=== PATIENT | female | born 1970 | race African-American/Black ===

== ENCOUNTER 2019-12-29 18:05 | Emergency (ER) | payer SELFPAY ==
--- NOTE | 2019-12-29 18:10 | ED.GENADULT ---
HPI - General Adult General Chief complaint: Skin/Abscess/Foreign Body Stated complaint: Spider Bite On Buttock Time Seen by Provider: 12/29/19 18:33 Source: patient Mode of arrival: ambulatory Limitations: no limitations History of Present Illness HPI narrative: 49-year-old female patient resents to the [facility] with complaints of a rash to the left buttock for the past 3 days. Patient states it is painful and is noticed pain to the area for the past 4 days but just noticed the rash there about 3 days ago. Patient states it does slightly itch but mostly it is very painful. Patient states she is tried Benadryl cream to help with the itching which did slightly help. Related Data Allergies Allergy/AdvReac Type Severity Reaction Status Date / Time No Known Allergies Allergy Unverified 05/20/19 21:47 Review of Systems Review of Systems: Narrative: CONSTITUTIONAL: Denies fever, chills, or sweats. EYES: Denies visual changes, redness, or discharge. ENT: Denies rhinorrhea, congestion, sore throat, or otalgia. CARDIOVASCULAR: Denies chest pain, palpitations, or edema. RESPIRATORY: Denies cough or dyspnea. GASTROINTESTINAL: Denies abdominal pain, nausea, vomiting, or diarrhea. GENITOURINARY: Denies dysuria or hematuria. SKIN: Positive painful rash with slight itching noted to the left buttocks x3 days with the pain there for the past 4 days. MUSCULOSKELETAL: Denies back pain, joint pain, or myalgia. NEUROLOGIC: Denies headache, numbness, or weakness. PSYCHIATRIC: Denies anxiety or depression. [facility] Family History Family History Other Family history of malignant neoplasm Social History Social History Smoking status: Former smoker Smoking end date: 09/05/92 Alcohol intake: current Comments At the time of my signature I agree with nursing past medical history, surgical, social, and family history. There is no relevant family history pertinent to the presenting complaint. Exam Narrative: Exam Narrative: GENERAL: Well-appearing, well-nourished, and in no acute distress. HEAD: Normocephalic, atraumatic. EYES: PERRLA and EOMI. ENT: Nares clear, no rhinorrhea or epistaxis. Mucous membranes moist. Patient does noted to have a small fever blister noted to the right side of the upper lip. NECK: Supple. No lymphadenopathy CHEST: Clear to auscultation. No respiratory distress. HEART: Regular rate and rhythm. No murmur heard. Normal peripheral pulses. ABDOMEN: Soft, nontender, nondistended, normal active bowel sounds. EXTREMITIES: Normal range of motion. No edema. SKIN: Warm, dry, patient has a cluster he blisterlike rash noted to the middle of the left buttock. It is very painful to the touch. There is no open wounds or drainage noted. NEURO: No focal deficits. Alert and oriented x3. Course Vital Signs Vital signs: Vital Signs Temperature 37.1 C 12/29/19 18: Pulse Rate 61 12/29/19 18: Respiratory Rate 16 12/29/19 18:29 Blood Pressure 130/78 12/29/19 18:29 Pulse Oximetry 98 12/29/19 18:29 Temperature 37.1 C 12/29/19 18:29 Pulse Rate 61 12/29/19 18:29 Respiratory Rate 16 12/29/19 18:29 Blood Pressure 130/78 12/29/19 18:29 Pulse Oximetry 98 12/29/19 18:29 Vital signs reviewed. The patient has been informed that they may have pre-hypertension or Hypertension based on a BP reading in the department. I recommend that the patient call the primary care provider listed on their discharge instructions or a physician of their choice this week to arrange follow up for further evaluation of possible pre-hypertension or Hypertension Medical Decision Making Differential Diagnosis Differential Diagnosis: Differential diagnosis: Abscess, cellulitis, hidradenitis, laceration, puncture wound. Contact dermatitis, poison chey, poison sumac, psoriasis, eczema, allergic reaction, drug reaction, sc
[2019-12-29 18:29] VITALS: BP 130/78; PULSE 61; RESP 16; TEMP 37.1; O2SAT 98
== END 2019-12-29 18:55 | disposition home or self-care (01) ==
PROVIDERS: Emergency Provider Nurse Practitioner Family
DX: B02.9 Zoster without complications (principal)
CPT/HCPCS: 99213; G0463

== ENCOUNTER 2021-03-19 16:02 | Emergency (ER) | payer OTHER, SELFPAY ==
[2021-03-19 16:15] VITALS: BP 124/51; PULSE 57; RESP 16; TEMP 36.3; O2SAT 99
--- NOTE | 2021-03-19 16:36 | ED.EAR ---
HPI - Ear Problem General Chief complaint: Ear Stated complaint: Ear Pain Time Seen by Provider: 03/19/21 16:36 Source: patient Mode of arrival: ambulatory Limitations: no limitations History of Present Illness HPI Narrative: Myles López is a 50-year-old female with bilateral ear pain that started for 5 to 7 days ago that she has tried to use Debrox and regular peroxide to improve the pain. She states her ears her rates the pain at 6 out of 10, the left worse than the right. She also has sore throat Related Data Allergies Allergy/AdvReac Type Severity Reaction Status Date / Time No Known Allergies Allergy Unverified 03/19/21 16:23 Review of Systems Review of Systems: Narrative: CONSTITUTIONAL: Denies fever, chills, sweats. EYES: Denies visual changes, redness, discharge. ENT: Denies rhinorrhea, mild congestion, has sore throat, bilateral otalgia. CARDIOVASCULAR: Denies chest pain, palpitations, edema. RESPIRATORY: Denies dyspnea, wheezing, cough GASTROINTESTINAL: Denies abdominal pain, nausea, vomiting, diarrhea. GENITOURINARY: Denies dysuria, hematuria, abnormal discharge SKIN: Denies rash or itching. NEUROLOGIC: Denies numbness, or focal weakness. PSYCHIATRIC: Denies anxiety or depression. PMFSH Past Medical History Medical History No acute medical problems Family History Family History Other Family history of malignant neoplasm Social History Social History Smoking status: Former smoker Smoking end date: 09/05/92 Alcohol intake: current Comments At time of signature, I agree with nursing past medical, surgical, social and family history. There is no relevant family history pertinent to the presenting complaint. Exam Narrative: Exam Narrative: GENERAL: This is a well-nourished, well-developed patient, in moderate distress. HEAD: normocephalic, atraumatic. EYES: . Sclera clear/white. Vision is grossly intact. EARS: External ears normal, auditory canals right has cerumen and left is erythematous without drainage, TMs appear intact. Hearing grossly intact. NOSE: External nose normal without nasal discharge, nares without redness, no rhinorrhea. THROAT: Mucous membranes moist, posterior pharynx erythema NECK: Neck supple, tender CARDIOVASCULAR: Regular rate and rhythm without murmurs, gallops, or rubs. RESPIRATORY: Clear to auscultation. Breath sounds equal bilaterally. No wheezes, rales, or rhonchi. GASTROINTESTINAL: Abdomen soft, SKIN: warm, intact with no suspicious lesions or rash, good texture and turgor. NEURO: awake, alert, and oriented to person, place and time. There were no obvious focal neurologic abnormalities. Steady gait EXTREMITIES: Normal range of motion. BACK: Nontender without deformity Course Course Emergency Course: Patient comes to [facility] with bilateral ear pain and sore throat x5 days Has cerumen in right ear left ear is red and inflamed and throat is also erythematous Strep test done Started on polymyxin eardrops and prednisone Vital Signs Vital signs: Vital Signs Temperature 97.4 F L 03/19/21 16:15 Pulse Rate 57 L 03/19/21 16:15 Respiratory Rate 16 03/19/21 16:15 Blood Pressure 124/51 L 03/19/21 16:15 Pulse Oximetry 99 03/19/21 16:15 Temperature 97.4 F L 03/19/21 16:15 Pulse Rate 57 L 03/19/21 16:15 Respiratory Rate 16 03/19/21 16:15 Blood Pressure 124/51 L 03/19/21 16:15 Pulse Oximetry 99 03/19/21 16:15 Medical Decision Making Differential Diagnosis Differential Diagnosis: Pharyngitis versus tonsillitis versus strep Impacted cerumen versus otitis externa versus otitis media Vital Signs Vital Signs: Vital Signs Temperature 97.4 F L 03/19/21 16:15 Pulse Rate 57 L 03/19/21 16:15 Respiratory Rate 16 03/19/21 16:15 Blood Pressure 124/51 L 03/19/21 1
== END 2021-03-19 17:06 | disposition home or self-care (01) ==
PROVIDERS: Emergency Provider Nurse Practitioner
DX: H61.21 Impacted cerumen, right ear (principal); H60.312 Diffuse otitis externa, left ear; J02.9 Acute pharyngitis, unspecified; Z87.891 Personal history of nicotine dependence
CPT/HCPCS: 69209; 87081; 87880; 99213; G0463

== ENCOUNTER 2021-04-29 18:09 | Emergency (ER) | payer OTHER, SELFPAY ==
--- NOTE | ~2021-04-29 | XR_ITS ---
XR chest 2V DATE: 04/29/2021 18:54 INDICATION: Shortness of breath for 3 weeks TECHNIQUE: 2 views COMPARISON: 03/17/2016 AP and lateral chest FINDINGS: Normal heart size. No hilar or mediastinal enlargement. No pulmonary infiltrate or consolid ation. The lungs are moderately hyperinflated. No pleural effusion or pulmonary vascular congestion o r pneumothorax. There is mild dextroscoliosis and degenerative spurring of the thoracic spine. IMPRESSION: Moderate hyperinflation; no active cardiopulmonary disease Reviewed, dictated and finalized at location A.
--- NOTE | 2021-04-29 18:14 | ED.URI ---
HPI - URI/Sore Throat General Chief Complaint: Upper Respiratory Infection Stated Complaint: sob/congestion Time Seen by Provider: 04/29/21 18:14 Source: patient and RN notes reviewed Mode of arrival: ambulatory Limitations: no limitations History of Present Illness HPI Narrative: 50-year-old female presents with concern with intermittent shortness of breath. She describes a feeling of not being able to get a full breath. She denies cough, chest pain, fever. Reports symptoms started approximately 3 weeks ago with an ear infection. Reports she was taken antibiotics and prednisone and the ear infection resolved. She reports current rhinorrhea and shortness of breath. She denies history of control pills, long periods of being sedentary. Denies known sick contacts. Reports she had a negative Covid test last week. She denies loss of sense of taste or smell, headache, body aches, chills, sweats, fever. MD elicited complaint: cough Related Data Allergies Allergy/AdvReac Type Severity Reaction Status Date / Time No Known Allergies Allergy Unverified 04/29/21 18:29 Review of Systems Review of Systems: CONSTITUTIONAL: Denies malaise, chills, sweats, or fever. EYES: Denies visual changes, redness, or discharge. ENT: Reports rhinorrhea. Denies congestion, sinus pain, otalgia and sore throat. CARDIOVASCULAR: Denies chest pain, palpitations, or edema. RESPIRATORY: Denies cough. Reports dyspnea. GASTROINTESTINAL: Denies abdominal pain, nausea, vomiting, diarrhea SKIN: Denies rash or itching. MUSCULOSKELETAL: Denies myalgia. NEUROLOGIC: Denies headache. All systems reviewed & are unremarkable except as noted in HPI and below PMFSH Past Medical History Medical History No acute medical problems Family History Family History Other Family history of malignant neoplasm Social History Social History Smoking status: Former smoker Smoking end date: 09/05/92 Alcohol intake: current Comments At time of signature, agree with nursing past medical, surgical, social and family history. There is no relevant family history pertinent to the presenting complaint Exam Narrative: GENERAL: Well-appearing, well-nourished, and in no acute distress. HEAD: Normocephalic EYES: PERRLA, conjunctivae clear ENT: Nares clear, clear discharge. Mucous membranes moist. TM pearly ferreira with dull light reflex bilaterally; no tragal tenderness. Oropharynx not erythematous without lesions. Tonsils not enlarged and without exudate, no drooling, no hoarseness, no trismus, uvula midline. NECK: Supple. No lymphadenopathy CHEST: Clear to auscultation, breath sounds equal. No wheezing, rhonchi, rales, or stridor. No respiratory distress, speaks in full sentences. HEART: Regular rate and rhythm. No murmur heard. SKIN: Warm, dry, no rash. NEURO: Alert and oriented x3. PSYCH: Normal mood and affect Course Course Emergency Course: Patient is aware of diagnosis, understands and agrees to treatment plan. Anticipatory guidance given. Patient agrees to follow-up as directed and is aware of reasons to seek care at the emergency department. Portions of this record may have been created with voice recognition software Vital Signs Vital signs: Reviewed. MDM - URI/Sore Throat MDM Narrative Medical decision making narrative: Differential diagnosis considered: Godoy virus, strep pharyngitis, allergic rhinitis, upper respiratory tract infection, sinusitis, rhinosinusitis, nasopharyngitis. viral pharyngitis, otitis media, otitis externa, pneumonia, bronchitis, viral cough syndrome, viral syndrome, and influenza. Exam findings show no acute concerns or changes; patient is non-toxic appearing and is in no distress. Patient is appropriate for outpatient treatment and follow-up. Imaging Data My impression: Image
[2021-04-29 18:20] VITALS: BP 136/91; PULSE 70; RESP 16; TEMP 35.7; O2SAT 100
== END 2021-04-29 19:44 | disposition home or self-care (01) ==
PROVIDERS: Emergency Provider Nurse Practitioner
DX: R91.8 Other nonspecific abnormal finding of lung field (principal); Z87.891 Personal history of nicotine dependence
CPT/HCPCS: 71046; 99213; G0463

== ENCOUNTER 2022-04-24 13:39 | Emergency (ER) | payer OTHER, SELFPAY ==
--- NOTE | 2022-04-24 13:46 | ED.URI ---
HPI - URI/Sore Throat General Chief Complaint: Ear Stated Complaint: ear ache,runny nose,chest thi Time Seen by Provider: 04/24/22 13:46 Source: patient Mode of arrival: ambulatory Limitations: no limitations History of Present Illness HPI Narrative: Ms. López is a 51-year-old female patient presenting to the clinic today with complaints of earache, runny nose, and chest congestion x2 weeks. She reports she has been also having headaches and dizziness. She denies any known fever or chills. She denies any known exposure to anyone with COVID. Related Data Allergies Allergy/AdvReac Type Severity Reaction Status Date / Time No Known Allergies Allergy Verified 04/24/22 13:53 Review of Systems Review of Systems: Pertinent positives per HPI. Patient denies any fever, chills, rash, headache, visual changes, dizziness, sore throat, shortness of breath, chest pain, palpitations, nausea, vomiting, diarrhea, constipation, abdominal pain, or any urinary issues. [facility] Past Medical History Medical History No acute medical problems Family History Family History Other Family history of malignant neoplasm Social History Social History Smoking status: Former smoker Smoking end date: 09/05/92 Alcohol intake: current Comments At the time of my signature, I reviewed and agree with the nursing past medical, surgical, social, and family history. There is no relevant family history pertinent to the patient complaint. Exam Narrative: General: Well-developed, obese, in no apparent distress Head: Normocephalic, atraumatic Eyes: Pupils equally round and reactive to light bilaterally, EOM intact, sclera and conjunctive clear, no discharge, lids normal Ears: TMs intact, dull, mild bulging, ear canals ceruminous, no drainage, grossly hearing normal. Nose: Nares patent, no discharge, severe inflammation with white striae, ethmoid, maxillary, and frontal sinus tenderness. Mouth: Oropharynx without lesions or masses, good dentition, MMM. Oropharynx red, postnasal drip Neck: Supple, trachea midline, no enlargement of anterior or posterior cervical nodes, no thyroid masses or goiter palpable. Cardio: Regular rate and rhythm, s1 and s2 normal, no murmur appreciated. Resp: Clear to auscultation bilaterally anteriorly and posteriorly, no rhonchi, rales, wheezing or rubs Course Course Emergency Course: Portions of this record may have been created with voice recognition software. Level of Care: Express Care Visit Vital Signs Vital signs: Vital signs reviewed MDM - URI/Sore Throat MDM Narrative Medical decision making narrative: At the time of visit patient is resting comfortably on the exam table. I suspect patient has acute rhinosinusitis with eustachian tube dysfunction. Supportive measures were discussed with the patient she voiced understanding of discharge instructions. Prescriptions were sent for prednisone and Augmentin. Differential Diagnosis Differential diagnosis: Likely upper respiratory infection, otitis media, sinusitis, viral infection, bronchitis, influenza, pharyngitis and other (COVID) Discharge Plan Discharge Clinical Impression: Acute bacterial rhinosinusitis, Acute dysfunction of both eustachian tubes Patient Disposition: Home, Self-Care Condition: Stable Instructions: Antibiotic Form, Rhinosinusitis (ED) Additional Instructions: Take prescription medications only as prescribed-prednisone and Augmentin as prescribed Increase fluids and stay well hydrated Tylenol/motrin for pain/fever Flonase and OTC antihistamines as directed Vicks vapor rub to open sinuses Sinus rinses for congestion Cool-mist humidifier at the bedside Cepacol spray, cough drops, throat lozenges, warm tea with honey/lemon, ga
[2022-04-24 13:53] VITALS: BP 126/75; PULSE 70; RESP 16; TEMP 36.2; O2SAT 100
== END 2022-04-24 14:18 | disposition home or self-care (01) ==
PROVIDERS: Emergency Provider Nurse Practitioner Family
DX: J01.90 Acute sinusitis, unspecified (principal); H69.93 Unspecified Eustachian tube disorder, bilateral; Z87.891 Personal history of nicotine dependence
CPT/HCPCS: 99213; G0463

== ENCOUNTER 2024-10-22 14:30 | Outpatient (RCR) | payer OTHER, SELFPAY ==
--- NOTE | 2024-08-31 13:34 | OPREHPOC ---
Outpatient Therapy Plan of Care This is a Multidisciplinary Plan of Care that may contain components documented by all disciplines (PT, OT, and ST.) PT Problem 1 PT Problem #1 Knowledge Deficit PT Goal 1 Goal / Goal Update *indep with HEP Target Visit 8 PT Problem 2 PT Problem #2 Pain PT Goal 1 Goal / Goal Update * pain decrease to 4/10 at worst Target Visit 8 PT Goal 2 Goal / Goal Update * radicular pain to elbow L at worst Target Visit 8 PT Problem 3 PT Problem #3 Impaired Flexibility PT Goal 1 Goal / Goal Update * increase cervical rotation R and L to improve ability to drive and do home activities: 1* rotation R 70' 2* rotation L 70' Target Visit 8 PT Goal 2 Goal / Goal Update *no increase in pain reported with cervical rotation to R and L Target Visit 8 PT Problem 4 PT Problem #4 Impaired Functional Mobility PT Goal 1 Goal / Goal Update self assessment with Neck Disability Index rating of 38% limitation in activity level Target Visit 8
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
--- NOTE | 2024-09-07 08:50 | PCPTNOTE ---
pt did not show for today's appt. Called and left message for next appt time.
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
--- NOTE | 2024-09-27 10:01 | OPREHPOC ---
Outpatient Therapy Plan of Care This is a Multidisciplinary Plan of Care that may contain components documented by all disciplines (PT, OT, and ST.) PT Problem 1 PT Problem #1 Knowledge Deficit PT Goal 1 Goal / Goal Update *indep with HEP 09-27-24 progress goal met; continue towards to progress education and HEP Target Visit 11 PT Problem 2 PT Problem #2 Pain PT Goal 1 Goal / Goal Update * pain decrease to 4/10 at worst 09-27-24 progress goal not met, improved to 5/10 at worst Target Visit 11 PT Goal 2 Goal / Goal Update * radicular pain to elbow L at worst 09-27-24 progress goal not met, to fingers at worst continue towards goal Target Visit 11 PT Problem 3 PT Problem #3 Impaired Flexibility PT Goal 1 Goal / Goal Update * increase cervical rotation R and L to improve ability to drive and do home activities: 1* rotation R 70' 2* rotation L 70' 09-27-24 progress goal 2 met continue towards goal 1 Target Visit 11 PT Goal 2 Goal / Goal Update *no increase in pain reported with cervical rotation to R and L 09-27-24 progress goal partially met, rotation to L continue with rotation R Target Visit 11 PT Problem 4 PT Problem #4 Impaired Functional Mobility PT Goal 1 Goal / Goal Update self assessment with Neck Disability Index rating of 38% limitation in activity level 09-27-24 progress goal not met but improved to 40% limitation NEW GOAL: Neck disability index rating of 32% limitation in activity level Target Visit 11
--- NOTE | 2024-09-27 10:01 | PTOPPROG ---
Assessment and note entered by Sharita Villanueva, PT Assessment Status Progress Other ICD-10 Condition Codes ( strain of neck muscle S16.1XXA PT) Onset Jun Subjective Information feel the therapy is helping- dry needle and manual therapy; have been doing the exercises; do not have a follow up appointment with dr. Gaytan PT Clinical Summary Myles has received 7 PT sessions. Compared to the initial evaluation: pain from 4-8/ 10 to 3-5/10; radicular pain into L UE continues, now 0-2x/week, lasting few seconds only; with sleeping, awaken 2-3x to 1-2x/night; Self assessment Neck Index rating from 50% to 40% limitation in activity level; increased cervical rotation ROM to L and rotation to R increases pain L neck; bilateral shoulder ROM is WNL bilateral, with reports of pulling; increased posture awareness and education for HEP. The goals were partially achieved. Continue PT treatment. Will have 4 additional visits, then insurance requires an update on her status. Plan of Care Interventions Electrical Stimulation,Hot Pack/Cold Pack,Manual Therapy,Neuro Re-education,Patient/Caregiver Education,Therapeutic Activities,Therapeutic Exercise,Ultrasound,Other Other Interventions taping, dry needling PT Services Indicated Yes Treatment Frequency and 1-2x/wk for 4 additional visits Duration These treatments will address the objective and functional deficits as defined above. The patient will be advanced safely and appropriately in order for the patient to progress towards his/her prior level of function. Additional exercises will be introduced and as well as a comprehensive home exercise program upon discharge, if needed, ?to ensure carryover of functional gains achieved in the clinic. This treatment plan has been reviewed and agreement upon by the patient.
--- NOTE | 2024-10-22 15:09 | PTOPDC ---
Assessment and note entered by Sharita Villanueva, PT Assessment Status Discharge Other ICD-10 Condition Codes ( strain of neck muscle S16.1XXA PT) Onset Jun Subjective Information feel like doing some better, have less tingle in L arm; some less in the pain; still have tightness in neck; have been doing the exercises at home; not having a good day, cold weather bothers my arthritis; have to call dr and make appt after this evaluation today; Reported Pain Level Pain Score Self Report Additional Pain Score Comments pain range 3-4/10 in the past week; have tingle into L hand about 2x/week; increase pain: lie on L side, lifting or reaching overhead decrease pain: exercises, move, tylenol report with sleeping: awaken 1x/night due to pain, reposition have tension headaches, come and go, have had since yesterday- migraine meds help Assessment PT Clinical Summary Mrs. López has received 10 PT sessions. Compare to the last reassessment: pain from 3-5/ 10 to 3-4/10; tingling into L fingers from 0-2x/ day to 2x/wk; reported awakening from sleeping, from 1-2x to 1x/night; self assessment with Neck Index rating from 40% to 52% limitation in activity level; She reports tension headache today, has taken her migraine meds and with the cold weather, arthritis is worse. Today: cervical rotation to R is 50' with increase pain L cervical and rotation L is 60'; active R and L shoulder flexion 130', abduction 130', IR- reaching behind back, palm to waist and ER motions all increase pain in upper traps and neck; education completed for HEP. The goals were partially met. She is to make a follow up appointment with her dr. Discharge PT services at this time. She is to continue with the HEP and pain control techniques. Plan of Care PT Services Indicated No
== END 2024-10-23 09:47 | disposition home or self-care (01) ==
LOC: ANHPT 14:30
DX: S16.1XXA Strain of muscle, fascia and tendon at neck level, initial encounter (principal)
CPT/HCPCS: 97014; 97110; 97140; 97161; 97530; G0283

== ENCOUNTER 2024-10-30 13:10 | Emergency (ER) | payer OTHER, SELFPAY ==
[2024-10-30 13:22] VITALS: BP 128/85; PULSE 73; RESP 16; TEMP 36.2; O2SAT 99
--- NOTE | 2024-10-30 13:27 | ED_ITS ---
HPI - URI/Sore Throat General Chief Complaint: Upper Respiratory Infection Stated Complaint: dry cough,runny nose Time Seen by Provider: 10/30/24 13:27 Source: patient, RN notes reviewed and old records reviewed Mode of arrival: ambulatory Limitations: no limitations Related Data Allergies Allergy/AdvReac Type Severity Reaction Status Date / Time No Known Allergies Allergy Verified 10/30/24 13:23 Review of Systems Review of Systems: All systems reviewed & are unremarkable except as noted in HPI and below Constitutional: Constitutional: Reports no additional constitutional complaints ENT: Reports system reviewed and no additional complaints, except as docume nted Cardiovascular: Cardiovascular: Reports no additional cardiovascular complaints Respiratory: Respiratory: Reports no additional respiratory complaints Gastrointestinal: Gastrointestinal: Reports no additional gastrointestinal complaints [facility] Past Medical History Medical History No acute medical problems Family History Family History Other Family history of malignant neoplasm Social History Social History Smoking status: Former smoker Smoking end date: 09/05/92 Alcohol intake: current Comments At the time of my signature, I reviewed and agree with the nursing past medical, surgical, social, and family history. There is no relevant family history pertinent to the patient complaint. Exam Const: General: cooperative, no acute distress, alert and awake O rientation/consciousness: oriented to person, oriented to place and oriented to time HENMT: Head: normal to inspection Resp: Effort & Inspection: normal respiratory effort and able to speak in complete sentences Auscultation: clear to auscultation bilaterally, no crackles, no rales, no rhonchi and no wheezes Cardio: Palpation: normal PMI Rate: regular rate Rhythm: regular rhythm Heart sounds: S1 normal heart sound present and S2 normal heart sound present Neuro: General: oriented to person, oriented to place and oriented to time Cranial nerves: Yes CN's II-XII intact bilaterally Psych: Appearance: grossly normal Thought process: Normal thought process present Insight: Good insight present (Psych) Judgement: Good judgement present (Psych) Course Course Level of Care: Express Care Visit Vital Signs Vital signs: Vital Signs Temperature 97.1 F L 10/30/24 13:22 Pulse Rate 73 10/30/24 13:22 Respiratory Rate 16 10/30/24 13:22 Blood Pressure 128/85 10/30/24 13:22 Pulse Oximetry 99 10/30/24 13:22 Oxygen Delivery Room Air 10/30/24 13:22 Temperature 97.1 F L 10/30/24 13:22 Pulse Rate 73 10/30/24 13:22 Respiratory Rate 16 10/30/24 13:22 Blood Pressure 128/85 10/30/24 13:22 Pulse Oximetry 99 10/30/24 13:22 Oxygen Delivery Room Air 10/30/24 13:22 Reviewed Discharge Plan Discharge Clinical Impression: Bronchitis Patient Disposition: Home, Self-Care Condition: Stable Instructions: Antibiotic Form, Acute Bronchitis (ED) Additional Instructions: Take medications as prescribed. Follow with primary care provider. Emergency department for new or worse symptoms Patient Language: Albanian Prescriptions: New azithromycin 250 mg tablet See Rx Instructions .ROUTE .COMPLEX Qty: 6 0RF Rx Instructions: For 250 mg dose pack: take 500 mg today (day 1), then 250 mg for 4 days (days 2-5) prednisone 50 mg tablet 50 mg PO DAILY Qty: 5 0RF albuterol sulfate [Ventolin HFA] 90 mcg/actuation HFA aerosol inhaler 2 puff inhalation QID PRN (Reason: shortness of breath or wheezing) Qty: 8.5 0RF Follow-up/Referrals: [facility] [Primary Care Provider] - Stand Alone Forms: Work/School Release IP Time of Disposition: 13:44
== END 2024-10-30 13:50 | disposition home or self-care (01) ==
PROVIDERS: Emergency Provider Nurse Practitioner Family
DX: J40 Bronchitis, not specified as acute or chronic (principal); Z87.891 Personal history of nicotine dependence
CPT/HCPCS: 99213; G0463